=== PATIENT | male | born 1990 | race Caucasian/White ===

== ENCOUNTER 2018-02-14 17:32 | Emergency (ER) | payer BC ==
[2018-02-14 18:03] VITALS: BP 134/68; PULSE 102; RESP 18; TEMP 98.9; O2SAT 98
[2018-02-14] MEDS ORDERED: Oxycodone/Acetaminophen 5/325 mg Tab PO STA (18:05)
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
--- NOTE | 2018-02-15 09:07 | RAD ---
Date of service: 02/14/2018 PROCEDURE: Radiographs of the right elbow. HISTORY: ELBOW INJURY COMPARISON: No prior. FINDINGS: BONES: No acute fracture or destructive bony lesion identified. JOINTS: Normal. No osteoarthritis. SOFT TISSUES: Lateral and dorsal elbow and proximal forearm soft tissue edema suggested. JOINT EFFUSION: None. OTHER FINDINGS: None. IMPRESSION: No definitive fracture or dislocation appreciable. Moderate lateral and dorsal elbow/proximal forearm soft tissue edema identified. Follow-up MRI or CT may be considered if clinical concern for bone or soft tissue injury remains at the right elbow.
--- NOTE | 2018-02-15 09:08 | RAD ---
PROCEDURE: Radiographs of the Right Forearm HISTORY: ARM INJURY COMPARISON: None available. TECHNIQUE: Frontal and lateral views obtained. FINDINGS: BONES: No fracture or destructive lesion. JOINT SPACES: Unremarkable. OTHER FINDINGS: Moderate dorsal lateral proximal forearm soft tissue edema noted extending to the elbow region somewhat. IMPRESSION: No acute fracture or destructive bony lesion appreciable. No subluxation or dislocation. Moderate dorsal lateral proximal right forearm/elbow soft tissue edema identified.
== END 2018-02-14 19:36 | disposition home or self-care (01) ==
LOC: H.ER 17:32
DX: S59.901A Unspecified injury of right elbow, initial encounter (principal); V98.8XXA Other specified transport accidents, initial encounter